=== PATIENT | male | born 1945 | race Caucasian/White ===

== ENCOUNTER 2024-08-19 11:36 | Outpatient (CLI) | payer BC, SELFPAY ==
[2024-08-19 12:13] LABS: Bilirubin Urine Negative (Negative); Blood Urine 3+ (Negative); Glucose Urine UA Negative (Normal); Ketones Urine Negative (Negative); Leukocyte Esterase Urine 3+ (Negative); Nitrate Urine Positive (Negative); Protein Urine 1+ (Negative); Urine Appearance Cloudy (CLEAR); pH Urine 5.5 (5-7)
[2024-08-19 12:18] LABS: Bacteria Urine 4+ /hpf; RBC Urine >100 /hpf (0-2); Squamous Epithelial Cell Urine 0-5 /hpf (0-5); WBC Urine >100 /hpf (0-5)
[2024-08-19 12:29] LABS: Urine Color Orange (Yellow)
[2024-08-19 12:30] LABS: Add Urine Culture? Yes
== END 2024-08-19 11:37 | disposition home or self-care (01) ==
LOC: LAB 11:37
PROVIDERS: PCP Nurse Practitioner; Visit Provider Nurse Practitioner
DX: N30.01 Acute cystitis with hematuria (principal)
CPT/HCPCS: 81001

== ENCOUNTER 2024-12-21 16:57 | Outpatient (CLI) | payer MEDICARE, MEDICAID, SELFPAY ==
[2024-12-21 17:54] LABS: Bilirubin Urine Negative (Negative); Blood Urine Negative (Negative); Glucose Urine UA Negative (Normal); Ketones Urine Negative (Negative); Leukocyte Esterase Urine 2+ (Negative); Nitrate Urine Negative (Negative); Protein Urine Negative (Negative); Specific Gravity, Urine 1.009 (1.005-1.030); Urine Appearance Clear (CLEAR); Urine Color Yellow (Yellow); Urobilinogen Urine 0.2 mg/dL (Negative)
[2024-12-21 18:00] LABS: Add Urine Microscopic? YES; Bacteria Urine None Seen /hpf; Hyaline Casts Urine 3.71 /lpf; RBC Urine 0-2 /hpf (0-2); Squamous Epithelial Cell Urine 0-5 /hpf (0-5); Universal Test for UA Present (0); WBC Urine 51-100 /hpf (0-5)
[2024-12-21 18:15] LABS: UA Slide Review UA Slide Review Perf
[2024-12-21 18:19] LABS: Add Urine Culture? No
== END 2024-12-21 16:58 | disposition home or self-care (01) ==
LOC: LAB 17:02
PROVIDERS: PCP Nurse Practitioner; Visit Provider Nurse Practitioner
DX: N39.0 Urinary tract infection, site not specified (principal)
CPT/HCPCS: 81001; 87086